=== PATIENT | female | born 1965 | race Caucasian/White ===

== ENCOUNTER → 2017-05-16 | Outpatient (CLI) | payer BC | LOC: MC.RAD 04-14 07:00 | DX: Z12.31 Encounter for screening mammogram for malignant neoplasm of breast (principal) ==

== ENCOUNTER → 2018-10-02 | Outpatient (CLI) | payer BC | LOC: MC.RAD 06:58 | DX: Z12.31 Encounter for screening mammogram for malignant neoplasm of breast (principal) ==

== ENCOUNTER → 2020-07-08 | Outpatient (CLI) | payer BC | LOC: MC.RAD 07:16 | DX: Z12.31 Encounter for screening mammogram for malignant neoplasm of breast (principal) ==